=== PATIENT | female | born 1985 | race Caucasian/White ===

== ENCOUNTER 2017-06-29 11:41 | Emergency (ER) | payer OTHER ==
[2017-06-29 11:48] VITALS: TEMP 98.2
[2017-06-29] MEDS ORDERED: ONDANSETRON 4 MG/2 ML VIAL IVP ONE (12:50)
--- NOTE | 2017-06-29 12:50 | EDPHY ---
H & P Time Seen by Provider: 06/29/17 12:31 Past Medical/Surgical History: CHIEF COMPLAINT: abdominal pain HISTORY OF PRESENT ILLNESS: 32-year-old woman developed abdominal pain yesterday and presents today with worsening symptoms. Started by feeling bloating in the morning yesterday, and then developed nausea and then right lower quadrant abdominal pain. Last menstrual period was last week on Tuesday. No vaginal symptoms or bleeding. No urinary symptoms. She describes associated shivering and worse in the car every time they went over a bump on the way here. Currently pain in RLQ. Does radiate a little bit to the upper abdomen to the back. Moderate at rest, moderate to severe with movement. No vaginal bleeding or discharge. REVIEW OF SYSTEMS: Eye: no change in vision ENT: no sore throat Cardiac: no chest pain or syncope Pulmonary: no cough or SOB Abdomen: HPI no diarrhea Musculoskeletal: no back pain Skin: no rash Neuro: no headache Constitutional: no fever : no urinary symptoms A comprehensive 10 point review of systems is otherwise negative aside from elements mentioned in the history of present illness. PAST MEDICAL HISTORY: Tonsillectomy Social history: Here with mother, family history of ovarian cyst. General Appearance: Alert and conversant, cooperative. Eyes: No scleral icterus. ENT, Mouth: Normal mucous membranes. Respiratory: Normal respiratory effort, breath sounds equal, lungs are clear to auscultation. Cardiovascular: Regular rate and rhythm. Gastrointestinal: Right lower quadrant tenderness and guarding. Decreased bowel sounds but present. Neurological: Alert and oriented x3. Normally conversant. Skin: Warm and dry, no rashes. Musculoskeletal: No peripheral edema and no joint swelling. Psychiatric: Not agitated. Emergency Department course/MDM: Zofran 4 mg IV for nausea. Declined pain medication initially, then fentanyl given prior to US. Plan for ultrasound of the pelvis and right ovary as well as the appendix. 1433: Normal appendix and normal pelvic ultrasound with normal ovaries per [place]. 1442: Reexamined, still very tender to palpation in the right lower quadrant. Pelvic exam and CT scanning discussed and consented. With continued tenderness I think further imaging indicated. 1543: Normal appendix seen on CT. Pelvic exam performed with nurse Snow Wright , some discharge in the vaginal vault but no cervical motion tenderness, STD testing sent. CT results discussed. At this point I think the most reasonable thing to do is symptomatic treatment, with appendicitis precautions. She does not appear to have ovarian torsion and my suspicion for STD is not high enough to treat her empirically without positive confirmatory testing. Smoking Status: Never smoked Constitutional: Initial Vital Signs Temperature (C) 36.8 C 06/29/17 11:45 Heart Rate 66 06/29/17 11:45 Respiratory Rate 18 06/29/17 11:45 Blood Pressure 137/81 H 06/29/17 11:45 O2 Sat (%) 99 06/29/17 11:45 O2 Delivery Mode Room Air Allergies/Adverse Reactions: amoxicillin [From Augmentin] Allergy (Verified 06/29/17 11:44) clavulanic acid [From Augmentin] Allergy (Verified 06/29/17 11:44) codeine Allergy (Verified 06/29/17 11:44) minocycline Allergy (Verified 06/29/17 11:44) Penicillins Allergy (Verified 06/29/17 11:44) Home Medications: Medication Instructions Recorded CLOBETASOL PROPIONATE 06/29/17 Gianvi 3 mg-0.02 mg Tablet 06/29/17 Spironolactone 06/29/17 Medical Decision Making Differential Diagnosis: Dental considered including but not limited to renal colic, diskitis, ovarian torsion, ovarian cyst. - Data Points Laboratory Results: Laboratory Results 06/29/17 12:10 06/29/17 12:10 Medications Given: Discontinued Medications Fentanyl (Sublimaze) 75 mcg IVP EDNOW ONE Stop: 06/29/17 12:52 Last Admin: 06/29/17 12:59 Dose: 75 mcg Ondansetron HCl (Zofran) 4 mg IVP EDNOW ONE Stop: 06/29/17 12:51 Last Admin: 06/29/17 12:58 Dose: 4 mg Departure - Departure Disposition: Home, Routine, Self-Care Clinical Impression: Abdominal pain Qualifiers: Abdominal location: right lower quadrant Qualified Code(s): R10.31 - Right lower quadrant pain Condition: Good Instructions: Acute Abdominal Pain (ED) Additional Instructions: You need to return to the emergency department immediately if you develop worsening or severe pain, fever, vomiting or you are not completely better in 8- 12 hours. Call tomorrow for results of STD testing [phone]. Referrals: Jose L Rodas DO [Doctor of Osteopathy] - As per Instructions Monisha Jorge MD [Retired Resigned] - As per Instructions
[2017-06-29] MEDS ORDERED: fentaNYL 100 MCG/2 ML INJ IVP ONE (12:51)
[2017-06-29 12:56] LABS: COLOR PALE YELLOW; LEUKOCYTE ESTERASE,URINE NEGATIVE (NEGATIVE); NITRITE,URINE NEGATIVE (NEGATIVE)
[2017-06-29 12:57] LABS: % IMMATURE GRANULYOCYTES 0.1 % (0.0-1.1); ABSOLUTE IMMATURE GRANULOCYTES 0.01 10^3/uL (0.00-0.10); ADD DIFF? NO; ADD MORPH? NO; ADD SCAN? NO; ATYPICAL LYMPHOCYTE FLAG 10 (0-99); FRAGMENT RBC FLAG 0 (0-99); HEMATOCRIT 42.3 % (38.0-47.0); HEMOGLOBIN 14.5 g/dL (12.6-16.3); LEFT SHIFT FLG 0 (0-99); LIPEMIA HEMOLYSIS FLAG 90 (0-99); MEAN CELL HEMOGLOBIN CONCENTR. 34.3 g/dL (32.4-36.7); MEAN CELL VOLUME 87.6 fL (81.5-99.8); MEAN PLATELET VOLUME 9.4 fL (8.7-11.7); PLATELET CLUMPS FLAG 10 (0-99); PLATELET COUNT 282 10^3/uL (150-400); RED BLOOD CELL COUNT 4.83 10^6/uL (4.18-5.33); RED CELL DISTRIBUTION WIDTH 11.9 % (11.5-15.2)
[2017-06-29 13:00] VITALS: RESP 16
[2017-06-29 13:01] LABS: ANION GAP 15 mEq/L (8-16); CALCIUM 9.8 mg/dL (8.5-10.4); CARBON DIOXIDE 20 mEq/l (22-31); CHLORIDE 103 mEq/L (97-110); CREATININE 0.7 mg/dL (0.6-1.0); GLOMERULAR FILTRATION RATE > 60; GLUCOSE 78 mg/dL (70-100); POTASSIUM 3.8 mEq/L (3.5-5.2); SODIUM 138 mEq/L (134-144)
[2017-06-29] MEDS ORDERED: IOPAMIDOL (ISOVUE-300) 100 ML BTL ONE (15:15)
[2017-06-29 15:26] VITALS: BP 137/77; PULSE 68; O2SAT 96
[2017-07-01 12:59] LABS: CHLAMYDIA AMPLIFICATION GENPRB NEGATIVE (NEGATIVE)
== END 2017-06-29 16:00 | disposition home or self-care (01) ==
DX: R10.31 Right lower quadrant pain (principal)
CPT/HCPCS: 96374; J2405; J3010; Q9967